=== PATIENT | female | born 1945 | race Caucasian/White ===

== ENCOUNTER → 2017-07-18 | Outpatient (CLI) | payer OTHER, MEDICARE | LOC: CIMAGING 10:36 | PROVIDERS: ATTEND Family Medicine | DX: Z12.31 Encounter for screening mammogram for malignant neoplasm of breast (principal); C81.90 Hodgkin lymphoma, unspecified, unspecified site | CPT/HCPCS: G0202 ==

== ENCOUNTER → 2018-07-24 | Outpatient (CLI) | payer OTHER, MEDICARE | LOC: CIMAGING 10:12 | PROVIDERS: ATTEND Family Medicine | DX: Z12.31 Encounter for screening mammogram for malignant neoplasm of breast (principal) ==